=== PATIENT | female | born 1970 | race Caucasian/White ===

== ENCOUNTER 2018-09-28 07:59 | Inpatient (IN) | payer OTHER ==
[2018-09-28] MEDS: SOD CHLORIDE 0.9% 1,000 ML IV ×2 (06:30→19:50)
[2018-09-28 09:50] LABS: ADD MAN DIFF? NO
[2018-09-28 09:52] LABS: WHITE BLOOD COUNT 6.8 10^3/ul (4.8-10.8)
[2018-09-28 09:53] LABS: BASOPHIL # 0.1 10^3/ul (0.0-0.1); EOSINOPHILS # 0.2 10^3/ul (0.0-0.5); EOSINOPHILS % 2.5 % (0.0-7.0); HEMATOCRIT 46.3 % (37.0-47.0); LYMPHOCYTES # 2.5 10^3/ul (0.8-2.9); LYMPHOCYTES % 36.4 % (15.0-51.0); MEAN CORPUSCULAR HEMOGLOBIN 30.9 pg (29.0-33.0); MEAN CORPUSCULAR HGB CONC 32.4 g/dl (32.0-37.0); MEAN CORPUSCULAR VOLUME 95.3 fl (82.0-101.0); MEAN PLATELET VOLUME 9.8 fl (7.4-10.4); MONOCYTE # 0.6 10^3/ul (0.3-0.9); MONOCYTES % 8.6 % (0.0-11.0); NEUTROPHIL # 3.4 10^3/ul (1.6-7.5); NEUTROPHILS % 51.1 % (39.0-77.0); PLATELET COUNT 249 10^3/UL (140-415); RED BLOOD COUNT 4.86 10^6/ul (4.20-5.40); RED CELL DISTRIBUTION WIDTH 13.9 % (11.5-14.5)
[2018-09-28 10:11] LABS: ALANINE AMINOTRANSFERASE 24 IU/L (13-69); ALBUMIN 4.1 g/dl (3.3-4.9); ALKALINE PHOSPHATASE 70 IU/L (42-121); ANION GAP 8 (5-13); ASPARTATE AMINO TRANSFERASE 24 IU/L (15-46); BILIRUBIN,INDIRECT 0.4 mg/dl (0-1.1); BILIRUBIN,TOTAL 0.4 mg/dl (0.2-1.3); BLOOD UREA NITROGEN 16 mg/dl (7-20); CARBON DIOXIDE 28 mmol/L (21-31); CHLORIDE 108 mmol/L (97-110); CREATININE 0.63 mg/dl (0.44-1.00); Estimated GFR > 60 mL/min (>60); GLUCOSE 88 mg/dl (70-220); POTASSIUM 3.9 mmol/L (3.5-5.1); SODIUM 144 mmol/L (135-144); TOTAL PROTEIN 7.8 g/dl (6.1-8.1)
[2018-09-28 10:34] LABS: INR 0.95; PROTIME 12.8 Sec (11.9-14.9)
[2018-09-28 10:35] LABS: PARTIAL THROMBOPLASTIN TIME 32.6 Sec (23.0-35.0)
[2018-09-28] MEDS ORDERED: CEFAZOLIN 1 GM INJ (11:25)
[2018-09-28] MEDS ORDERED: ROCURONIUM 50 MG INJ (11:25)
[2018-09-28] MEDS ORDERED: SEVOFLURANE 15 MIN (11:25)
[2018-09-28] MEDS ORDERED: PHENYLephrine (100 MCG/ML) 10ML SYG (11:25)
[2018-09-28] MEDS ORDERED: PROPOFOL 20 ML (11:25)
[2018-09-28] MEDS ORDERED: FENTAnyl 50 MCG/ML VIAL ×2 (11:26→12:44)
[2018-09-28] MEDS ORDERED: MIDAZOLAM 1 MG/ML 2 ML INJ (11:26)
[2018-09-28] MEDS ORDERED: OXYCODONE/ACETAMINOPHEN (5/325) TAB PO (12:30)
[2018-09-28] MEDS ORDERED: METOCLOPRAMIDE 10 MG INJ IV (12:30)
[2018-09-28] MEDS ORDERED: EPHEDrine 25 MG/5 ML SYG IV (12:30)
[2018-09-28] MEDS ORDERED: MEPERIDINE 25 MG INJ IV (12:30)
[2018-09-28] MEDS ORDERED: ONDANSETRON 4 MG INJ IV (12:30)
[2018-09-28] MEDS ORDERED: HYDROmorphONE 1 MG/5 ML IV SYRINGE IV (12:30)
[2018-09-28] MEDS ORDERED: hydrALAzine 20 MG INJ IV (12:30)
[2018-09-28] MEDS ORDERED: LABETALOL HCL 20MG INJ IV (12:30)
[2018-09-28] MEDS ORDERED: DIPHENHYDRAMINE 50 MG INJ IV (12:30)
[2018-09-28] MEDS ORDERED: FENTAnyl 50 MCG/ML VIAL IV (12:30)
[2018-09-28] MEDS ORDERED: ONDANSETRON 4 MG INJ (12:36)
[2018-09-28] MEDS ORDERED: METOCLOPRAMIDE 10 MG INJ (12:36)
[2018-09-28] MEDS ORDERED: DEXAMETHASONE 4 MG/ML 5 ML INJ (12:36)
[2018-09-28] MEDS ORDERED: LABETALOL HCL 20MG INJ (12:46)
[2018-09-28] MEDS: BUPIVACAINE 0.25% (MPF) 30 ML INJ (12:47)
[2018-09-28] MEDS ORDERED: SUGAMMADEX SODIUM 200 MG/2 ML VIAL IV (13:17)
[2018-09-28] MEDS ORDERED: CEFAZOLIN 2 GM/50 ML (PMX) 50 ML IVPB (13:30)
[2018-09-28] MEDS: CEFAZOLIN 2 GM/50 ML (PMX) 50 ML IVPB ×2 (13:40→21:16)
[2018-09-28] MEDS: FENTAnyl 50 MCG/ML VIAL IV ×3 (13:43→14:20)
[2018-09-28 13:46] LABS: ADD MAN DIFF? NO
[2018-09-28 13:49] LABS: WHITE BLOOD COUNT 8.2 10^3/ul (4.8-10.8)
[2018-09-28 13:49] LABS: BASOPHIL # 0.1 10^3/ul (0.0-0.1); BASOPHILS % 0.9 % (0.0-2.0); EOSINOPHILS # 0.2 10^3/ul (0.0-0.5); EOSINOPHILS % 2.2 % (0.0-7.0); HEMATOCRIT 47.9 % (37.0-47.0); HEMOGLOBIN 15.3 g/dl (12.0-16.0); LYMPHOCYTES # 3.2 10^3/ul (0.8-2.9); LYMPHOCYTES % 39.2 % (15.0-51.0); MEAN CORPUSCULAR HEMOGLOBIN 31.3 pg (29.0-33.0); MEAN CORPUSCULAR HGB CONC 31.9 g/dl (32.0-37.0); MEAN PLATELET VOLUME 9.8 fl (7.4-10.4); MONOCYTE # 0.6 10^3/ul (0.3-0.9); NEUTROPHIL # 4.1 10^3/ul (1.6-7.5); NEUTROPHILS % 50.1 % (39.0-77.0); PLATELET COUNT 224 10^3/UL (140-415); RED BLOOD COUNT 4.89 10^6/ul (4.20-5.40); RED CELL DISTRIBUTION WIDTH 13.9 % (11.5-14.5)
[2018-09-28] MEDS: HYDROmorphONE 1 MG/5 ML IV SYRINGE IV ×3 (13:54→14:11)
[2018-09-28 14:06] LABS: ALANINE AMINOTRANSFERASE 25 IU/L (13-69); ALBUMIN 3.9 g/dl (3.3-4.9); ALKALINE PHOSPHATASE 71 IU/L (42-121); ANION GAP 10 (5-13); ASPARTATE AMINO TRANSFERASE 24 IU/L (15-46); BILIRUBIN,INDIRECT 0.4 mg/dl (0-1.1); BILIRUBIN,TOTAL 0.4 mg/dl (0.2-1.3); BLOOD UREA NITROGEN 13 mg/dl (7-20); CALCIUM 8.6 mg/dl (8.4-10.2); CARBON DIOXIDE 23 mmol/L (21-31); CHLORIDE 109 mmol/L (97-110); CREATININE 0.66 mg/dl (0.44-1.00); Estimated GFR > 60 mL/min (>60); GLUCOSE 102 mg/dl (70-220); POTASSIUM 3.9 mmol/L (3.5-5.1); SODIUM 142 mmol/L (135-144); TOTAL PROTEIN 7.8 g/dl (6.1-8.1)
[2018-09-28] MEDS: morphine 2 MG INJ IV ×3 (15:22→22:24)
[2018-09-28] MEDS: LACTATED RINGER'S 1,000 ML IV ×2 (15:23→23:19)
[2018-09-29] MEDS: morphine 2 MG INJ IV ×4 (00:24→21:24)
[2018-09-29] MEDS: LACTATED RINGER'S 1,000 ML IV ×3 (00:26→21:26)
[2018-09-29] MEDS: HYDROCODONE/APAP (5/325) TAB PO ×4 (01:43→22:28)
[2018-09-29] MEDS: CEFAZOLIN 2 GM/50 ML (PMX) 50 ML IVPB ×2 (04:26→11:26)
[2018-09-29 05:13] LABS: ADD MAN DIFF? NO
[2018-09-29 05:22] LABS: BASOPHILS % 0.2 % (0.0-2.0); HEMATOCRIT 43.3 % (37.0-47.0); HEMOGLOBIN 13.9 g/dl (12.0-16.0); LYMPHOCYTES # 1.2 10^3/ul (0.8-2.9); MEAN CORPUSCULAR HEMOGLOBIN 30.9 pg (29.0-33.0); MEAN CORPUSCULAR HGB CONC 32.1 g/dl (32.0-37.0); MEAN CORPUSCULAR VOLUME 96.2 fl (82.0-101.0); MEAN PLATELET VOLUME 9.9 fl (7.4-10.4); MONOCYTE # 0.4 10^3/ul (0.3-0.9); MONOCYTES % 3.6 % (0.0-11.0); NEUTROPHIL # 10.4 10^3/ul (1.6-7.5); NEUTROPHILS % 85.7 % (39.0-77.0); PLATELET COUNT 265 10^3/UL (140-415); RED CELL DISTRIBUTION WIDTH 13.9 % (11.5-14.5)
[2018-09-29 05:22] LABS: WHITE BLOOD COUNT 12.1 10^3/ul (4.8-10.8)
[2018-09-29 06:10] LABS: ALANINE AMINOTRANSFERASE 19 IU/L (13-69); ALBUMIN 3.7 g/dl (3.3-4.9); ALBUMIN/GLOBULIN RATIO 1.02; ALKALINE PHOSPHATASE 53 IU/L (42-121); ANION GAP 9 (5-13); ASPARTATE AMINO TRANSFERASE 25 IU/L (15-46); BILIRUBIN,INDIRECT 0.2 mg/dl (0-1.1); BILIRUBIN,TOTAL 0.2 mg/dl (0.2-1.3); BLOOD UREA NITROGEN 12 mg/dl (7-20); CALCIUM 8.2 mg/dl (8.4-10.2); CARBON DIOXIDE 25 mmol/L (21-31); CHLORIDE 107 mmol/L (97-110); CREATININE 0.64 mg/dl (0.44-1.00); Estimated GFR > 60 mL/min (>60); GLUCOSE 156 mg/dl (70-220); POTASSIUM 4.1 mmol/L (3.5-5.1); SODIUM 141 mmol/L (135-144); TOTAL PROTEIN 7.3 g/dl (6.1-8.1)
[2018-09-29] MEDS: GUAIFENESIN/DM 5ML CUP PO ×2 (15:52→21:18)
[2018-09-29] MEDS: ATENOLOL 25 MG TAB PO (15:53)
[2018-09-29 17:43] LABS: CALCIUM 7.8 mg/dl (8.4-10.2)
[2018-09-29] MEDS: CALCIUM/VITAMIN D (500/200) TAB PO (21:18)
[2018-09-29] MEDS: BENAZEPRIL 10 MG TAB PO (21:18)
[2018-09-30] MEDS: morphine 2 MG INJ IV ×2 (01:25→05:56)
[2018-09-30] MEDS: HYDROCODONE/APAP (5/325) TAB PO ×3 (04:23→23:51)
[2018-09-30 05:16] LABS: ADD MAN DIFF? NO
[2018-09-30 05:20] LABS: WHITE BLOOD COUNT 12.1 10^3/ul (4.8-10.8)
[2018-09-30 05:20] LABS: BASOPHILS % 0.3 % (0.0-2.0); EOSINOPHILS % 0.3 % (0.0-7.0); HEMATOCRIT 39.4 % (37.0-47.0); HEMOGLOBIN 12.5 g/dl (12.0-16.0); LYMPHOCYTES # 3.4 10^3/ul (0.8-2.9); LYMPHOCYTES % 27.7 % (15.0-51.0); MEAN CORPUSCULAR HEMOGLOBIN 30.9 pg (29.0-33.0); MEAN CORPUSCULAR HGB CONC 31.7 g/dl (32.0-37.0); MEAN CORPUSCULAR VOLUME 97.5 fl (82.0-101.0); MEAN PLATELET VOLUME 10.2 fl (7.4-10.4); NEUTROPHIL # 7.7 10^3/ul (1.6-7.5); NEUTROPHILS % 63.3 % (39.0-77.0); PLATELET COUNT 229 10^3/UL (140-415); RED BLOOD COUNT 4.04 10^6/ul (4.20-5.40); RED CELL DISTRIBUTION WIDTH 14.4 % (11.5-14.5)
[2018-09-30 06:05] LABS: CALCIUM 7.6 mg/dl (8.4-10.2)
[2018-09-30] MEDS ORDERED: DIPHENHYDRAMINE 50 MG INJ IV (08:00)
[2018-09-30] MEDS: ATENOLOL 25 MG TAB PO (08:10)
[2018-09-30] MEDS: DIPHENHYDRAMINE 25 MG CAP PO (08:12)
[2018-09-30] MEDS: CALCIUM/VITAMIN D (500/200) TAB PO ×3 (08:13→20:08)
[2018-09-30] MEDS: PANTOPRAZOLE 40 MG INJ IV ×2 (14:49→20:12)
[2018-09-30] MEDS: MAGNESIUM HYDROXIDE 30ML CUP PO (14:49)
[2018-09-30] MEDS: MINERAL OIL 30ML CUP PO ×2 (14:49→20:08)
[2018-09-30] MEDS: LACTATED RINGER'S 1,000 ML IV (14:57)
[2018-09-30 15:48] LABS: CREATINE KINASE 109 IU/L (23-200)
[2018-09-30 16:01] LABS: CK INDEX 0.3; CK-MB 0.37 ng/ml (0.0-2.4); TROPONIN-I < 0.012 ng/ml (0.000-0.120)
[2018-09-30 16:18] LABS: FREE THYROXINE INDEX (Calc) 2.19 ug/ml (0.65-3.89); T3 UPTAKE 30.8 % (23.5-40.5); T4 (THYROXINE) 7.1 ug/dl (5.5-11.0)
[2018-09-30] MEDS ORDERED: PANTOPRAZOLE 40 MG INJ IV (18:00)
[2018-09-30] MEDS: BENAZEPRIL 10 MG TAB PO (20:11)
[2018-09-30 23:06] LABS: CREATINE KINASE 77 IU/L (23-200)
[2018-09-30 23:19] LABS: CK INDEX 0.5; CK-MB 0.36 ng/ml (0.0-2.4); TROPONIN-I < 0.012 ng/ml (0.000-0.120)
[2018-10-01] MEDS: PANTOPRAZOLE 40 MG INJ IV (05:15)
[2018-10-01 07:28] LABS: ADD MAN DIFF? NO
[2018-10-01 07:32] LABS: BASOPHIL # 0.1 10^3/ul (0.0-0.1); BASOPHILS % 0.6 % (0.0-2.0); EOSINOPHILS # 0.1 10^3/ul (0.0-0.5); EOSINOPHILS % 1.2 % (0.0-7.0); HEMATOCRIT 40.3 % (37.0-47.0); LYMPHOCYTES # 3.6 10^3/ul (0.8-2.9); LYMPHOCYTES % 38.9 % (15.0-51.0); MEAN CORPUSCULAR HEMOGLOBIN 31.3 pg (29.0-33.0); MEAN CORPUSCULAR HGB CONC 32.3 g/dl (32.0-37.0); MEAN CORPUSCULAR VOLUME 96.9 fl (82.0-101.0); MONOCYTE # 0.8 10^3/ul (0.3-0.9); MONOCYTES % 8.3 % (0.0-11.0); NEUTROPHIL # 4.7 10^3/ul (1.6-7.5); NEUTROPHILS % 50.5 % (39.0-77.0); PLATELET COUNT 218 10^3/UL (140-415); RED BLOOD COUNT 4.16 10^6/ul (4.20-5.40); RED CELL DISTRIBUTION WIDTH 14.4 % (11.5-14.5)
[2018-10-01 07:32] LABS: WHITE BLOOD COUNT 9.3 10^3/ul (4.8-10.8)
[2018-10-01 07:53] LABS: CHOLESTEROL 177 mg/dl (100-200)
[2018-10-01 07:53] LABS: CHOL/HDL RATIO 4.1 RATIO; HDL CHOLESTEROL 43 mg/dl (37-92); LDL CHOLESTEROL,CALCULATED 101 mg/dl; TRIGLYCERIDES 164 mg/dl (0-149)
[2018-10-01 07:54] LABS: ANION GAP 7 (5-13); BLOOD UREA NITROGEN 17 mg/dl (7-20); CALCIUM 7.9 mg/dl (8.4-10.2); CARBON DIOXIDE 30 mmol/L (21-31); CHLORIDE 103 mmol/L (97-110); CREATINE KINASE 59 IU/L (23-200); Estimated GFR > 60 mL/min (>60); GLUCOSE 85 mg/dl (70-220); POTASSIUM 3.8 mmol/L (3.5-5.1); SODIUM 140 mmol/L (135-144)
[2018-10-01 08:04] LABS: CK INDEX 0.4; CK-MB < 0.22 ng/ml (0.0-2.4); TROPONIN-I < 0.012 ng/ml (0.000-0.120)
[2018-10-01] MEDS: CALCIUM/VITAMIN D (500/200) TAB PO ×2 (08:42→13:58)
[2018-10-01] MEDS: ATENOLOL 25 MG TAB PO (08:43)
[2018-10-01] MEDS: MINERAL OIL 30ML CUP PO (08:43)
== END 2018-10-01 14:10 | disposition home or self-care (01) | DRG 627 ==
LOC: REC 07:59 → MS1 15:01
PROC: 0GTK0ZZ Resection of Thyroid Gland, Open Approach (ICD-10-PCS; principal; 2018-09-28 12:00)
DX: E04.1 Nontoxic single thyroid nodule (principal); R13.10 Dysphagia, unspecified; I10 Essential (primary) hypertension; E78.5 Hyperlipidemia, unspecified; E03.9 Hypothyroidism, unspecified; E66.9 Obesity, unspecified
CPT/HCPCS: 71045; 80048; 80053; 80061; 82310; 82550; 82553; 84436; 84479; 84484; 84703; 85025; 85610; 85730; 88307; 93005; 93306